=== PATIENT | male | born 1965 | race Caucasian/White ===

== ENCOUNTER 2017-11-28 20:44 | Emergency (ER) | payer OTHER ==
[~2017-11-28] VITALS: Ht 175.3 cm; Wt 104.3 kg
[2017-11-28] MEDS ORDERED: TOPROL XL50 M1 (20:52)
[2017-11-29] MEDS ORDERED: IBUPROFEN800 MG PO (02:38)
== END 2017-11-29 03:13 | disposition home or self-care (01) ==
LOC: ER 20:44 → CPU-OBS 21:10 → ER 21:10
DX: R07.89 Other chest pain (principal)
CPT/HCPCS: G0378; G0379; 93005